=== PATIENT | female | born 1950 | race Caucasian/White ===

== ENCOUNTER → 2017-06-16 | Outpatient (CLI) | payer OTHER ==
[~2017-06-16] MED LIST: ACETAMINOPHEN325 M1 PO; ALPRAZOLAM PO; AMITRIPTYLINE H10 M1 PO; AMITRIPTYLINE H25 M2 PO; ATENOLOL; ATENOLOL 25 MG25 M1 PO; ATENOLOL 25MG T25 M1 PO; ATENOLOL PO; BACLOFEN 10MG T10 M1 PO; BACLOFEN 10MG T10 MG PO; CATAPRES-TTS 20.2 MG TOP; CELEBREX 200 M200 M1 PO; CYMBALTA30 MG PO; DESYREL50 MG PO; ESTRACE0.5 MG PO; ESTRACE1 MG PO; ESTRADERM1 EACH TD; GABAPENTIN PO; GENERLAC PO; KAPVAY0.1 MG PO; KETAMINE; KETAMINE TOP; LEVOTHYROXIN0.112 M1 PO; LINZESS145 MCG PO; MELOXICAM7.5 MG PO; MIRALAX255 GM PO; MOBIC7.5 MG PO; MOVANTIK25 MG PO; NEURONTIN 300300 M1 PO; NEURONTIN 400M400 M2 PO; NEURONTIN600 MG PO; NUCYNTA50 MG PO; NUCYNTA75 MG PO; OXCARBAZEPINE150 MG PO; PRAVASTATIN PO; PRAVASTATIN SOD20 MG PO; PRILOSEC 20 MG20 MG PO; PRILOSEC40 MG PO; SENOKOT-S1 TA2 PO; SYNTHROID PO; SYNTHROID112 MCG PO; SYNTHROID125 MCG PO; SYNTHROID137 MCG PO; TEGRETOL200 MG PO; TESSALON PERLE100 M1 PO; TIZANIDINE HCL 22 M1 PO; TRILEPTAL150 MG; TRILEPTAL150 MG PO; VOLTAREN GEL 1100 G1 TOP; XANAX 0.5 MG0.5 M1 PO; XANAX 0.5 MG0.5 MG PO; ZANAFLEX4 MG PO; ZOFRAN ODT4 MG PO
--- NOTE | 2017-06-21 07:21 | PAINCON ---
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 Along the way, she developed some radicular pain symptoms. She returns to pain clinic today. She is relatively stable on her baseline medication. Notes that the left upper extremity remains problematic with dwindling function. She is, however, also getting some increase in left radicular pain. I had looked in an EMG of her left side some time ago, back in 2005 and 2010. The most recent study in 2010 did show nonspecific findings in the left upper extremity. EMG of the left lower extremity, which was accomplished, I believe on 09/30/2011, did note findings consistent with a mild L4-L5 radiculopathy (left). Today, the patient notes current pain is an 8-9 on a VAS. With cold weather (it has been single digits in [place] recently), the patient's pain is somewhat increased. Again ongoing concern with weakness and left L4 radicular pain pattern. The patient does use a cane in her right hand. She had fallen since we last saw her. States that her leg "gave out" as she was getting out of bed. PHYSICAL EXAMINATION: GENERAL: Otherwise shows a 67-year-old female, BMI is 21.4 kilograms per meter squared. VITAL SIGNS: Stable as noted in the record (blood pressure 130/85, pulse 72, respirations 16). EXTREMITIES: Upper extremity strength shows decreased range of motion in left arm. She keeps it abducted and wrist flexed protective position. She has decreased in the thenar eminence in the left hand. There are some skin changes compatible with RSD in the distal pad of the thumb and index finger. She does note some hyperhidrosis in the left hand. EXTREMITIES: Lower extremity does show diminished strength to left hip flexion and extension with positive straight leg raise at 30 degrees. We reviewed the fact that opiate medications are being used to provide analgesia adequate to support activities of daily living, not attempting to achieve a specific pain score on the 0-10 Visual Analog Scale. The current opiate medications are providing sufficient analgesia to allow the patient to participate in activities of daily living. The patient is not exhibiting any aberrant behavior suggestive of drug diversion. The patient is not having any adverse reactions to medications. The patient is not suffering from daytime somnolence or mental acuity changes. The patient is managing opiate-induced constipation with appropriate kwtg-brp-vzmqess agents and dietary considerations. The patient was counseled on concern for [place] [address] PAIN MANAGEMENT CONSULTATION Name: ILA MCBRIDE Room: [facility] ALESIA Najera#: [id number] Admission: 06/16/17 Attend Phys: Veronica Olivera Discharge: Date of : 52 Report #: [id number] a motor vehicle while using opiate medications. A physical exam was performed and the patient's functional status was evaluated. All patients with back pain were advised against the bed rest greater than 4 days and were advised to return to normal activities. Pain score assessment was noted and the treatment plan was reviewed with the patient. All current medications, both prescribed and OTC were reviewed and reconciled on the electronic medical record. Tobacco screening was accomplished and smoking cessation was advised when indicated. BMI was noted and diet/exercise modification was recommended for all patients following outside normal parameters. I reviewed with the patient today their responsibilities to safeguard prescription medications, reviewed their responsibility to utilize medications only as prescribed by the physician. They are to seek and receive pain medications only from 1 physician group ( [facility]). They are to use 1 pharmacy and keep the clinic informed if they change pharmacies. Their responsibilities include making followup visits in a timely fashion and to avoid abrupt discontinuation of medication usage. Their responsibilities further include bringing their medications (bottles from the pharmacy with residual pills) to the visit for possible confirmation of pill counts and the patient understands it is their responsibility to submit to random drug screens to ensure both that the medications prescribed are present, and that no other controlled substances are present. All prescriptions provided today were generated electronically. ASSESSMENT: 1. Neuropathic pain, left upper extremity requiring high risk complex medication management, stable on Cymbalta 30 mg a day, tizanidine for spasm. Celebrex 200 mg daily, amitriptyline 25 mg at bedtime and Nucynta 50 mg t.i.d. with 75 mg at bedtime. 2. Acute exacerbation of lumbar radiculopathy, left L4 radicular pain pattern. RECOMMENDATION: We will seek authorization for epidural injection under fluoroscopy, left to midline L4-L5. The patient failed conservative therapy including PT exercises, stretching, range of motion and daily ambulation, failed conservative therapy including nonsteroidal anti-inflammatory medications. EMG noting mild left L4-L5 radicular pain pattern as long as 5 years ago, symptoms seemed to have gotten worse. <ELECTRONICALLY SIGNED> By: Efren Zavaleta DO 06/21/17 0721 [id number] Zavaleta DO /nt
== END ==
LOC: M.PC 02:52
DX: G90.512 Complex regional pain syndrome I of left upper limb (principal); M54.16 Radiculopathy, lumbar region; Z79.899 Other long term (current) drug therapy

== ENCOUNTER → 2017-08-11 | Outpatient (CLI) | payer OTHER ==
--- NOTE | 2017-08-16 08:02 | PAINCON ---
[address] [address] PAIN MANAGEMENT CONSULTATION Name: ILA MCBRIDE Room: [facility] ALESIA Najera#: [id number] Admission: 08/11/17 Attend Phys: Veronica Olivera Discharge: Date of : 52 Report #: [id number] THIS REPORT FOR: //name// CC: Tiana Zvaaleta DATE OF SERVICE: 08/11/2017 The patient is a 67-year-old female, long [facility] to [facility], being treated for CRPS, left upper extremity neuropathic pain requiring complex medication management, comorbidity of lumbar radiculopathy versus RSD left lower extremity. Last visit, we had continued patient on Cymbalta 30 mg 1 a day, Elavil 20 mg at bedtime, Nucynta 50 mg t.i.d. with 75 mg at bedtime. Continued Voltaren gel topically for some subjective arthritic pain, left hand and elbow. Last visit was 06/16/2017, continued on baseline medications. She was having some ongoing radicular pain, left L4 pattern. We sought authorization for epidural injection under fluoroscopy; however, this was denied as her insurance apparently is worker's compensation for the left upper extremity and they felt the lumbar radicular component was out of their area of responsibility. I was not so worried about responsibility is trying to simply treat the patient. I believe she would benefit from an epidural injection for lumbar radicular symptoms. I believe it should be covered by Medicare. Nonetheless, we have elected to postpone that intervention. She returns to pain clinic today. Pain is an 8-9 on VAS. She notes generalized pain left upper extremity, exacerbated with cold weather changes. She did fall on 08/05/2017. She states her left leg "gave out." She struck her left shoulder with some exacerbation of left upper extremity RSD pain. She does feel Cymbalta is helpful. PHYSICAL EXAMINATION: Does show 5 feet 2 inches, 121-pound female, BMI is 22 kg/m2. Blood pressure 149/74, pulse 69, respirations 16. Cervical range of motion is modestly limited. Does have some hyperhidrosis of the left palm. There is slight hypothenar dystrophy. She has light touch allodynia about the left hand, forearm, and inner arm up to the axilla. Left upper extremity strength is diminished about 3/5 to biceps, triceps and deltoid, difficult to tell if this is due to effort or not. Right upper extremity strength is little stronger 4/5. Does have a positive straight leg raise on the left. She has pain in the knee, which she notes is a "tight" sensation, though there is ballotable edema in the knee. Ligaments appeared to be intact. The patient rates her subjective pain an 8-9 on a VAS. She does not use tobacco products. ASSESSMENT: Neuropathic pain, left upper extremity, [place] [address] PAIN MANAGEMENT CONSULTATION Name: ILA MCBRIDE Room: [facility] ALESIA Najera#: [id number] Admission: 08/11/17 Attend Phys: Veronica Olivera Discharge: Date of : 52 Report #: [id number] requiring complex medication management, component of left leg radicular pain versus spread of reflex sympathetic dystrophy. RECOMMENDATIONS: Continue tapentadol unchanged, 50 mg t.i.d. with 75 mg at bedtime. Continue Cymbalta 30 mg daily, tizanidine 2 mg as needed for spasm, typically at bedtime. Discontinue Celebrex due to lack of efficacy. Continue amitriptyline 25 mg at bedtime. Follow up in 2 months for reevaluation. <ELECTRONICALLY SIGNED> By: Efren Zavaleta DO 08/16/17 0802 [id number] Zavaleta DO /nt
== END ==
LOC: M.PC 00:56
DX: G89.4 Chronic pain syndrome (principal); M79.2 Neuralgia and neuritis, unspecified; M79.605 Pain in left leg; Z79.899 Other long term (current) drug therapy

== ENCOUNTER → 2017-09-13 | Outpatient (CLI) | payer MEDICARE, BC | LOC: M.RAD 11:56 | DX: M25.512 Pain in left shoulder (principal) ==

== ENCOUNTER → 2017-10-06 | Outpatient (CLI) | payer OTHER ==
--- NOTE | 2017-10-07 07:13 | PAINCON ---
[facility] [address] [place] [address] PAIN MANAGEMENT CONSULTATION Name: ILA MCBRIDE Room: [facility] ALESIA Najera#: [id number] Admission: 10/06/17 Attend Phys: Veronica Olivera Discharge: Date of : 52 Report #: [id number] THIS REPORT FOR: //name// CC: Tiana Zavaleta HISTORY OF PRESENT ILLNESS: The patient is a 67-year-old female being treated for CRPS, left upper extremity neuropathic pain, requiring complex medication management. She has been stable for quite some time on Nucynta 50 mg t.i.d. and +75 at bedtime, Cymbalta 30 mg daily and Elavil 20 mg at bedtime. 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 She did have a left shoulder steroid injection yesterday, though she had good transient relief with the local anesthetic. The steroid effect has not given her good relief yet. She states she fell. Since I saw her last, she states her left leg "gave out." Has some ongoing lumbar radicular symptoms as well. Her left upper extremity today appears unchanged, has a little bit of hyperpathia and allodynia. Light touch does exacerbate pain, though again she does have manicured left hand, her daughter is a beautician and does manicure her mother's nails. She does have some wasting of the thenar and hyperthenar eminence, left compared to right. She rates the pain a 7 on a VAS. PHYSICAL EXAMINATION: VITAL SIGNS: Otherwise shows 5 feet 2 inches, 116 pounds female and BMI is 21 kg per meter squared. Blood pressure is 126/69, pulse 67 and respirations 18. GENERAL: Alert and oriented to person, place and time, judged to be a reasonable historian. She does not exhibit the usual intermittent shaking and trembling that she has exhibited on prior exams. MUSCULOSKELETAL: She actually has fairly normal gait today though has subjective left leg pain. Modestly positive straight leg raising, left. Left upper extremity as described in the body of the chief complaint. ASSESSMENT AND RECOMMENDATION: Discussion with the patient today about therapeutic options. I did point out that while she has been stable on Nucynta, unfortunately, this agent is likely going to be withdrawn from production. We will need to rotate to a different medication. Given her primary neuropathic pain component, we may consider rotation to methadone. Her current load of Nucynta at 225 mg a day, roughly equates to 90 mg of morphine, roughly equivalent to about 20 mg of methadone. May consider starting at 5 mg t.i.d., consideration for 5 mg in morning and 5 mg 8 hours later and 10 mg at bedtime. Alternatively, consider Percocet 5/325 t.i.d. with 7.5 mg at bedtime. We did stress the patient today that opiate analgesics again [place] [address] PAIN MANAGEMENT CONSULTATION Name: ILA MCBRIDE Room: [facility] Najera#: [id number] Admission: 10/06/17 Attend Phys: Veronica Olivera Discharge: Date of : 52 Report #: [id number] primarily assist with functional status and not provide "a complete analgesia." We reviewed the fact that opiate medications are being used to provide analgesia adequate to support activities of daily living, not attempting to achieve a specific pain score on the 0-10 Visual Analog Scale. The current opiate medications are providing sufficient analgesia to allow the patient to participate in activities of daily living. The patient is not exhibiting any aberrant behavior suggestive of drug diversion. The patient is not having any adverse reactions to medications. The patient is not suffering from daytime somnolence or mental acuity changes. The patient is managing opiate-induced constipation with appropriate cbpf-fya-[id number] agents and dietary considerations. The patient was counseled on concern for caution with operating a motor vehicle while using opiate medications. A physical exam was performed and the patient's functional status was evaluated. All patients with back pain were advised against the bed rest greater than 4 days and were advised to return to normal activities. Pain score assessment was noted and the treatment plan was reviewed with the patient. All current medications, both prescribed and OTC were reviewed and reconciled on the electronic medical record. Tobacco screening was accomplished and smoking cessation was advised when indicated. BMI was noted and diet/exercise modification was recommended for all patients following outside normal parameters. I reviewed with the patient today their responsibilities to safeguard prescription medications, reviewed their responsibility to utilize medications only as prescribed by the physician. They are to seek and receive pain medications only from 1 physician group ( [facility]). They are to use 1 pharmacy and keep the clinic informed if they change pharmacies. Their responsibilities include making followup visits in a timely fashion and to avoid abrupt discontinuation of medication usage. Their responsibilities further include bringing their medications (bottles from the pharmacy with residual pills) to the visit for possible confirmation of pill counts and the patient understands it is their responsibility to submit to random drug screens to ensure both that the medications prescribed are present, and that no other controlled substances are present. All prescriptions provided today were generated electronically. Long discussion with the patient today about bio-equivalent and therapeutic options. I did discuss with the patient today that I will be leaving the practice area. Given that she is a work comp patient, she will need to contact her third republican payer, [employer] Work [employer], to find another treating physician in their physician panel. The patient's last random drug screen 02/24/2017 was positive for prescribed medications. Discharged in good stable condition after approximately 25+ minute visit, [place] [address] PAIN MANAGEMENT CONSULTATION Name: ILA MCBRIDE Room: [facility]#: [id number] Admission: 10/06/17 Attend Phys: Veronica Olivera Discharge: Date of : 52 Report #: [id number] greater than 50% of time spent counseling the patient, discussing therapeutic options an opiate rotation. <ELECTRONICALLY SIGNED> By: Efren Zavaleta DO 10/07/17 0713 1435 [id number] Zavaleta DO /nt
== END ==
LOC: M.PC 04:06
DX: G90.522 Complex regional pain syndrome I of left lower limb (principal); M79.2 Neuralgia and neuritis, unspecified; Z79.899 Other long term (current) drug therapy

== ENCOUNTER → 2017-10-18 | Outpatient (CLI) | payer MEDICARE, BC | LOC: M.ULTRA 10:00 | DX: E04.1 Nontoxic single thyroid nodule (principal); E03.4 Atrophy of thyroid (acquired) ==

== ENCOUNTER → 2018-05-16 | Outpatient (CLI) | payer MEDICARE, BC | LOC: M.RAD 11:00 | DX: Z12.31 Encounter for screening mammogram for malignant neoplasm of breast (principal) ==

== ENCOUNTER → 2019-06-05 | Outpatient (CLI) | payer MEDICARE, BC | LOC: M.RAD 10:27 | DX: Z12.31 Encounter for screening mammogram for malignant neoplasm of breast (principal) ==

== ENCOUNTER → 2019-06-23 | Outpatient (CLI) | payer MEDICARE, BC | LOC: M.RAD 10:21 → M.ULTRA 11:00 | DX: N60.01 Solitary cyst of right breast (principal) ==

== ENCOUNTER → 2020-02-20 | Outpatient (CLI) | payer MEDICARE, BC | LOC: M.RAD 14:56 | PROVIDERS: ATTEND Nurse Practitioner Family | DX: R14.0 Abdominal distension (gaseous) (principal); I87.8 Other specified disorders of veins; Z90.49 Acquired absence of other specified parts of digestive tract ==

== ENCOUNTER → 2020-02-23 | Outpatient (CLI) | payer MEDICARE, BC | LOC: M.CT 12:01 | PROVIDERS: ATTEND Nurse Practitioner Family | DX: J43.9 Emphysema, unspecified (principal); R91.8 Other nonspecific abnormal finding of lung field; N28.1 Cyst of kidney, acquired; J98.4 Other disorders of lung ==

== ENCOUNTER → 2020-08-05 | Outpatient (CLI) | payer MEDICARE, BC | LOC: M.CT 11:38 | PROVIDERS: ATTEND Family Medicine | DX: K57.30 Diverticulosis of large intestine without perforation or abscess without bleeding (principal); R14.0 Abdominal distension (gaseous); Z85.118 Personal history of other malignant neoplasm of bronchus and lung ==

== ENCOUNTER → 2020-10-25 | Outpatient (CLI) | payer MEDICARE, BC | LOC: M.RAD 10:55 | PROVIDERS: ATTEND Family Medicine | DX: Z12.31 Encounter for screening mammogram for malignant neoplasm of breast (principal) ==

== ENCOUNTER → 2021-05-20 | Outpatient (CLI) | payer MEDICARE, BC | LOC: M.RAD 12:07 | PROVIDERS: ATTEND Nurse Practitioner Family | DX: R11.0 Nausea (principal); R10.9 Unspecified abdominal pain; M41.85 Other forms of scoliosis, thoracolumbar region; M41.86 Other forms of scoliosis, lumbar region ==